=== PATIENT | male | born 1965 | race Caucasian/White ===

== ENCOUNTER → 2019-05-12 | Outpatient (CLI) | payer BC ==
[~2019-05-12] MED LIST: ADULT LOW DOSE81 MG PO; ASA5UEC PO; EFFIENT10 MG PO; HYZAAR 100-251 EACH; LIPITOR80 MG PO; NIASPAN 500 MG500 M1; NITROGLYCERIN0.4 MG SL; NORVASC10 MG PO; PREDNISONE 10 M10 M1; TOPROL XL50 MG PO; WELCHOL; WELCHOL 625 MG625 MG; ZOCOR 20 MG TAB20 M1
== END ==
LOC: RAD 10:22
DX: M18.9 Osteoarthritis of first carpometacarpal joint, unspecified (principal); M19.042 Primary osteoarthritis, left hand; M25.842 Other specified joint disorders, left hand

== ENCOUNTER → 2020-06-14 | Outpatient (CLI) | payer BC | LOC: LAB 11:27 | PROVIDERS: ATTEND Nurse Practitioner | DX: U07.1 COVID-19 (principal) ==

== ENCOUNTER → 2020-11-02 | Outpatient (CLI) | payer OTHER | LOC: RAD 10-25 11:05 | PROVIDERS: ATTEND Nurse Practitioner | DX: M19.072 Primary osteoarthritis, left ankle and foot (principal); M19.071 Primary osteoarthritis, right ankle and foot; M79.671 Pain in right foot; M79.672 Pain in left foot ==